=== PATIENT | female | born 1950 | race Caucasian/White ===

== ENCOUNTER 2019-04-09 06:45 | Emergency (ER) | payer MEDICARE, BC ==
[~2019-04-09] VITALS: Ht 167.6 cm; Wt 56.0 kg
--- NOTE | 2019-04-09 06:55 | NUR ---
awaiting for ed MD.Call light within reach.
[2019-04-09] MEDS ORDERED: magnesium 2GM in 50ml NS 50 ML IV ONE (07:10)
[2019-04-09] MEDS ORDERED: normal saline 1000ML IV soln IVB ONE (07:10)
[2019-04-09] MEDS ORDERED: dexamethasone 4mg/ml inj IV ONE (07:10)
[2019-04-09] MEDS ORDERED: proCHLORperazine 10 MG/2 ml inj IV ONE (07:10)
[2019-04-09] MEDS ORDERED: ketorolac trometh. 30mg/ml inj. IV ONE (07:10)
[2019-04-09] MEDS ORDERED: SUMAtriptan succ. 6 MG/0.5ml vial SQ ONE (07:10)
[2019-04-09] MEDS ORDERED: acetaminophen 325mg tablet PO ONE (07:10)
[2019-04-09] MEDS ORDERED: PRED20TA PO (08:14)
[2019-04-09] MEDS ORDERED: triamcinolone acetonide 40mg/ml inj IM ONE (08:15)
--- NOTE | 2019-04-09 08:16 | NUR ---
patient wanting to egt oob,spouse at bedside.MD aware.
[2019-04-09 08:46] VITALS: BP 161/79
== END 2019-04-09 08:49 | disposition home or self-care (01) ==
LOC: ER 06:46
DX: G43.909 Migraine, unspecified, not intractable, without status migrainosus (principal); R11.2 Nausea with vomiting, unspecified; I10 Essential (primary) hypertension; Z90.710 Acquired absence of both cervix and uterus; Z88.8 Allergy status to other drugs, medicaments and biological substances; Z79.899 Other long term (current) drug therapy
CPT/HCPCS: 96365; 96372; 96375; 99284; J0780; J1100; J1885; J3301; J3475; J7030; J3030